=== PATIENT | male | born 1985 | race Caucasian/White ===

== ENCOUNTER 2020-02-29 20:26 | Emergency (ER) | payer SELFPAY ==
[~2020-02-29] VITALS: Ht 182.9 cm; Wt 90.7 kg
[2020-02-29] MEDS ORDERED: SODIUM CHLORIDE 0.9% 1000ML 1,000 ML IV STA (20:46)
[2020-02-29] MEDS ORDERED: ACTIVATED CHARCOAL 25 GM/120 ML NG STA (20:48)
[2020-02-29] MEDS ORDERED: CHARCOAL/SORBITOL LIQD 25 GM/120 ML TUBE ONE (20:52)
--- NOTE | 2020-02-29 21:00 | NUR ---
PT IN ED HALLWAY DIRECTLY IN VIEW FROM NURSES STATION, 1:[address], SITTER AT BEDSIDE; PT IN NAD, RESP E/U, NON-DIAPHORETIC, V/S/S.
--- NOTE | 2020-02-29 21:11 | Emergency Department Note ---
History of Present Illnes History of Present Illness Chief Complaint: Drug Abuse/Intoxication History of Present Illness This is a 34 year old male PMH of HIV presents to the ED with alleged ingestion of gabapentin, effexor, and remeron. Patient seen at bedside NAD VSS. Prior h/o of multiple suicidal attempts. . Historian: Patient Arrival Mode: [place] Oracle Business Intelligence Developer Required: No Onset (how long ago): second(s) Radiation: Reports non-radiation Severity: moderate Onset quality: sudden Timing of current episode: constant Progression: unchanged Chronicity: new Relieving factors: none Exacerbating factors: none Associated symptoms: Reports denies other symptoms Treatments prior to arrival: none Past Medical/Family History Physician Review I have reviewed the patient's past medical and family history. Any updates have been documented here. Past Medical History Recent Fever: No Clinical Suspicion of Infectio: No New/Unexplained Change in Ment: Yes Social History Smoking Cessation: Current some day smoker Alcohol Use: Social Any Illegal Drug Use: No Review of Systems Review of Systems Constitutional: Reports no symptoms EENTM: Reports no symptoms Cardiovascular: Reports no symptoms Respiratory: Reports no symptoms Gastrointestinal: Reports no symptoms Genitourinary: Reports no symptoms Musculoskeletal: Reports no symptoms Integumentary: Reports no symptoms Neurological: Reports no symptoms Psychological: Reports depressed Endocrine: Reports no symptoms Hematological/Lymphatic: Reports no symptoms Physical Exam Related Data Allergies: Coded Allergies: carisoprodol (Verified Allergy, Intermediate, 02/29/20) Triage Vital Signs Vital Signs Date Time Temp Pulse Resp B/P (MAP) Pulse Ox O2 Delivery O2 Flow Rate FiO2 02/29/20 20:37 97.2 90 19 138/79 97 Room Air Vital signs reviewed: Yes Physical Exam CONSTITUTIONAL Constitutional: Present well-developed, Present well-nourished HENT HENT: Present normocephalic, Present atraumatic, Present oropharynx clear/moist, Present nose normal HENT L/R: Present left ext ear normal, Present right ext ear normal EYES Eyes: Reports PERRL, Reports conjunctivae normal NECK Neck: Present ROM normal PULMONARY Pulmonary: Present effort normal, Present breath sounds normal CARDIOVASCULAR Cardiovascular: Present regular rhythm, Present heart sounds normal, Present capillary refill normal, Present normal rate GASTROINTESTINAL Abdominal: Present soft, Present nontender, Present bowel sounds normal GENITOURINARY Genitourinary: Present exam deferred SKIN Skin: Present warm, Present dry MUSCULOSKELETAL Musculoskeletal: Present ROM normal NEUROLOGICAL Neurological: Present alert, Present oriented x 3, Present no gross motor or sensory deficits PSYCHOLOGICAL Psychological: Present other ((+) Suicidal ideation) Results Laboratory Lab results reviewed: Yes Laboratory comments Laboratory Tests Test 02/29/20 21:02 White Blood Count 7.96 x10e3/uL (4.8-10.8) Red Blood Count 4.70 x10e6/uL (4.3-5.7) Hemoglobin 14.9 g/dL (14.0-18.0) Hematocrit 44.6 % (38.2-49.6) Mean Corpuscular Volume 94.9 fL (81-99) Mean Corpuscular Hemoglobin 31.7 pg (28-32) Mean Corpuscular Hemoglobin Concent 33.4 g/dL (31-35) Red Cell Distribution Width 12.6 % (11.7-14.4) Platelet Count 192 x10e3/uL (140-360) Neutrophils (%) (Auto) 52.6 % (38.7-80.0) Lymphocytes (%) (Auto) 33.7 % (18.0-39.1) Monocytes (%) (Auto) 9.9 % (4.4-11.3) Eosinophils (%) (Auto) 2.5 % (0.0-6.0) Basophils (%) (Auto) 0.8 % (0.0-1.0) Neutrophils # (Auto) 4.2 (2.1-6.9) Lymphocytes # (Auto) 2.7 (1.0-3.2) Monocytes # (Auto) 0.8 (0.2-0.8) Eosinophils # (Auto) 0.2 (0.0-0.4) Basophils # (Auto) 0.1 (0.0-0.1) Absolute Immature Granulocyte (auto 0.04 x10e3/uL (0-0.1) Sodium Level 140 mmol/L (136-145) Potassium Level 4.0 mmol/L (3.5-5.1) Chloride Level 105 mmol/L (98-107) Carbon Dioxide Level 26 mmol/L (22-29) Anion Gap 13.0 mmol/L (8-16) Blood Urea Nitrogen 13 mg/dL (7-26) Creatinine 1.23 mg/dL (0.72-1.25) Estimat Glomerular Filtration Rate > 60 ML/MIN (60-) BUN/Creatinine Ratio 11 (6-25) Glucose Level 75 mg/dL (74-118) Calcium Level 9.0 mg/dL (8.4-10.2) Total Bilirubin 0.4 mg/dL (0.2-1.2) Aspartate Amino Transf (AST/SGOT) 31 IU/L (5-34) Alanine Aminotransferase (ALT/SGPT) 54 IU/L (0-55) Alkaline Phosphatase 82 IU/L (40-150) Total Protein 7.2 g/dL (6.5-8.1) Albumin 3.8 g/dL (3.5-5.0) Globulin 3.4 g/dL (2.3-3.5) Albumin/Globulin Ratio 1.1 (0.8-2.0) Salicylates Level < 5.0 mg/dL (0-30) Acetaminophen Level < 3.0 ug/mL (10-30) Ethyl Alcohol Level < 10.0 mg/dL (0.0-10.0) Procedures 12 Lead ECG Interpretation ECG Interpretation : ECG: ECG 1 [employer] Business Intelligence Developer: Interpreted by ED physician Date: Feb 29, 2020 Time: 21:09 Prior ECG tracings: reviewed Rhythm: sinus rhythm Rate: normal BPM: 84 ST segments normal: Yes T waves normal: Yes Pacin% capture Clinical Impression: normal ECG Critical Care Time Total Critical Care Time (min): 31 Critcal care necessary due to: toxidrome Critcal care time spent by me: develop tx plan w patient/surrogate, evaluation patient response to tx, examination of patient, order/review laboratory studies, re-evaluation of patient condition Assessment & Plan Medical Decision Making MDM Diff Dx : depression, suicidal attempt, suicidal ideation, attention seeking, overdose Assessment & Plan Final Impression: (1) Suicidal behavior with attempted self-injury Depart Disposition: XFER TO PSYCH HOSP/UNIT Last Vital Signs Date Time Temp Pulse Resp B/P (MAP) Pulse Ox O2 Delivery O2 Flow Rate FiO2 02/29/20 20:37 97.2 90 19 138/79 97 Room Air Medications in the ED Charcoal/Sorbitol 50 gm STK-MED ONCE .ROUTE ; Start 02/29/20 at 20:52; Stop 02/29/20 at 20:47; Status DC Sodium Chloride 1,000 ml @ 100 mls/hr Q10H STAT IV ; Start 02/29/20 at 20:46; Stop 03/01/20 at 06:45 Charcoal 50 gm NOW STAT NG Last administered on 02/29/20at 21:04; Admin Dose 50 GM; Start 02/29/20 at 20:48; Stop 02/29/20 at 20:49; Status DC ARIANNA CLEMONS DO Feb 29, 2020 21:11
[2020-02-29 21:21] LABS: BASOPHILS # (AUTO) 0.1 (0.0-0.1); BASOPHILS % 0.8 % (0.0-1.0); EOSINOPHILS # (AUTO) 0.2 (0.0-0.4); EOSINOPHILS % 2.5 % (0.0-6.0); HEMATOCRIT 44.6 % (38.2-49.6); HEMOGLOBIN 14.9 g/dL (14.0-18.0); LYMPHOCYTES # (AUTO) 2.7 (1.0-3.2); LYMPHOCYTES % 33.7 % (18.0-39.1); MEAN CORPUSCULAR HEMOGLOBIN 31.7 pg (28-32); MEAN CORPUSCULAR HGB CONC 33.4 g/dL (31-35); MEAN CORPUSCULAR VOLUME 94.9 fL (81-99); MONOCYTES # (AUTO) 0.8 (0.2-0.8); MONOCYTES % 9.9 % (4.4-11.3); NEUTROPHILS # (AUTO) 4.2 (2.1-6.9); NEUTROPHILS % 52.6 % (38.7-80.0); PLATELET COUNT 192 x10e3/uL (140-360); RED CELL DISTRIBUTION WIDTH 12.6 % (11.7-14.4)
--- NOTE | 2020-02-29 21:30 | NUR ---
PT TRANSFERRED TO ROOM 10, ATTACHED TO PIT FURNACE OPERATOR- SHOWING NSR, 1:1 SITTER AT BEDSIDE, PT IN PAPER SCRUBS, ROOM SAFE FOR PSYCH PT; AMBU ABG AND SUCTION AT BEDSIDE FOR PRECAUTION.
[2020-02-29 21:32] LABS: ALANINE AMINOTRANSFERASE 54 IU/L (0-55); ALBUMIN 3.8 g/dL (3.5-5.0); ALBUMIN/GLOBULIN RATIO 1.1 (0.8-2.0); ALKALINE PHOSPHATASE 82 IU/L (40-150); BLOOD UREA NITROGEN 13 mg/dL (7-26); BUN/CREATININE RATIO 11 (6-25); CARBON DIOXIDE 26 mmol/L (22-29); CHLORIDE 105 mmol/L (98-107); CREATININE, SERUM 1.23 mg/dL (0.72-1.25); EST GLOMERULAR FILTRATION RATE > 60 ML/MIN (60-); GLUCOSE 75 mg/dL (74-118); SODIUM 140 mmol/L (136-145)
[2020-02-29 21:41] LABS: SALICYLATE < 5.0 mg/dL (0-30)
--- NOTE | 2020-02-29 22:40 | NUR ---
PER DR. CLEMONS TO CALL [facility], SPOKE WITH BECKY COSTA PLACED IN QUEUE, PENDING CALL BACK FOR HOME HEALTH ASSISTANT.
--- NOTE | 2020-02-29 23:27 | NUR ---
PHONE REPORT GIVEN TO FABIO JAMISON TRAINING MGR; STATES ETA 5-10 MIN.
--- NOTE | 2020-02-29 23:43 | NUR ---
FABIO JAMISON BATCH PLANT SUPERVISOR AT BEDSIDE FOR EVAL.
--- NOTE | 2020-03-01 02:00 | NUR ---
MAT AUTOMATIC SPREADER OPERATOR DEPARTED, STATES PT DEMETRI/INVOLUNTARY INPATIENT, FAXED INFO TO [facility], PENDING RESPONSE FROM [facility].
--- NOTE | 2020-03-01 07:00 | NUR ---
RECEIVED REPORT FROM OFF GOING NURSE. PATIENT IN ROOM IN BED, AWAKE AND ALERT. NO S/S OF ACUTE DISTRESS. RESP EVEN AND NON-LABORED. 1:1 SITTER AT BEDSIDE. PENDING ACCEPTANCE/ROOM FOR TRANSFER.
--- NOTE | 2020-03-01 08:04 | NUR ---
SPOKE WITH CONCHA AT [facility] TEAM DISPATCH WHOM EDUCATED ME COURTS ARE CLOSED UNTIL WEDNESDAY SO WILL BE UNABLE TO OBTAIN A WARRANT UNTIL AT LEAST THEN.
--- NOTE | 2020-03-01 11:49 | NUR ---
CALLED AND NOTIFIED MAT TEAM DISPATCH PT IS DISCHARGED, FAXED DISCHARGE SUMMARY AND ED NOTE.
== END 2020-03-01 09:05 | disposition home or self-care (01) ==
LOC: ER 20:40
DX: T14.91XA Suicide attempt, initial encounter (principal); T42.6X2A Poisoning by other antiepileptic and sedative-hypnotic drugs, intentional self-harm, initial encounter; B20 Human immunodeficiency virus [HIV] disease; F20.9 Schizophrenia, unspecified; F17.210 Nicotine dependence, cigarettes, uncomplicated
CPT/HCPCS: 36415; 80053; 80320; 80329 ×2; 85025; 99284; J7030